=== PATIENT | female | born 1960 | race Two or more races ===

== ENCOUNTER 2017-03-09 05:51 | Emergency (ER) | payer BC, OTHER ==
[2017-03-09 06:25] VITALS: BMI 26.6
[2017-03-09 06:56] LABS: URINE APPEARANCE SLCLOUDY; URINE BILIRUBIN NEGATIVE (NEGATIVE); URINE BLOOD 3+ (NEGATIVE); URINE COLOR YELLOW; URINE GLUCOSE (UA) NEGATIVE (NEGATIVE); URINE KETONE NEGATIVE (NEGATIVE); URINE NITRITE NEGATIVE (NEGATIVE); URINE UROBILINOGEN NEGATIVE mg/dL (0.2-1.0)
[2017-03-09 07:01] LABS: URINE PROTEIN 1+ (NEGATIVE)
[2017-03-09 07:02] LABS: URINE MUCUS FEW; URINE RBC 217; URINE WBC 10
[2017-03-09] MEDS ORDERED: KETOROLAC TROMETHAMINE 15 MG/ML VIAL IVPUSH ONE (07:25)
[2017-03-09] MEDS ORDERED: KETOROLAC TROMETHAMINE 15 MG/ML VIAL ONE (07:29)
[2017-03-09] MEDS ORDERED: SODIUM CHLORIDE 1,000 ML IV STA (07:36)
--- NOTE | 2017-03-09 07:49 | PDOC ---
History of Present Illness - General Chief Complaint: Pain, Acute Stated Complaint: PAIN/KIDNEY STONE Time Seen by Provider: 03/09/17 07:23 - History of Present Illness Initial Comments: 03/09/17 07:46 56F with no pmh presents with left flank pain radiating to groin and lower back with burning on urination since 3 am. She also had an episode of vomiting this morning outside the ER. She had kidney stones in the past 5 years ago. 03/09/17 08:05 Past History - Past Medical History Allergies/Adverse Reactions: Allergies Allergy/AdvReac Type Severity Reaction Status Date / Time No Known Allergies Allergy Verified 03/09/17 06:20 Home Medications: Ambulatory Orders Diazepam [Valium] 5 mg PO BID PRN #10 tablet 10/12/12 Naproxen [Naprosyn] 500 mg PO BID PRN #14 tablet 10/12/12 No Home Medications 0 dose .ROUTE UTDICT 10/12/12 - Reproductive History Cervical CA: No Dysfunctional Uterine Bleeding: No Ectopic : No Endometrial CA: No Polycystic Ovaries: No - Suicide/Smoking/Psychosocial Hx Smoking Status: No Smoking History: Never smoked Have you smoked in the past 12 months: No Number of Cigarettes Smoked Daily: 0 Information on smoking cessation initiated: No Hx Alcohol Use: No Drug/Substance Use Hx: No Review of Systems - Review of Systems Able to Perform ROS?: Yes Constitutional: No: Chills, Fever, Weakness HEENTM: No: Symptoms Reported Respiratory: No: Symptoms reported Cardiac (ROS): No: Symptoms Reported ABD/GI: No: Symptoms Reported : Yes: Burning, Dysuria, Urgency. No: Hematuria Musculoskeletal: No: Symptoms Reported Integumentary: No: Symptoms Reported Neurological: No: Symptoms reported Endocrine: No: Symptoms Reported All Other Systems: Reviewed and Negative *Physical Exam - Vital Signs Last Vital Signs Temp Pulse Resp BP Pulse Ox 97.7 F 64 14 108/71 100 03/09/17 06:21 03/09/17 06:21 03/09/17 06:21 03/09/17 06:21 03/09/17 06:21 - Physical Exam General Appearance: Yes: Nourished, Appropriately Dressed. No: Apparent Distress HEENT: positive: EOMI, MELISSA, Normal ENT Inspection Neck: positive: Trachea midline. negative: Tender Respiratory/Chest: positive: Lungs Clear, Normal Breath Sounds. negative: Chest Tender Cardiovascular: positive: Regular Rhythm, Regular Rate, S1, S2 Gastrointestinal/Abdominal: positive: Normal Bowel Sounds, Flat, Soft, Protuberent Musculoskeletal: positive: CVA Tenderness (L) Neurologic: positive: Fully Oriented, Alert, Normal Mood/Affect ED Treatment Course - LABORATORY CBC & Chemistry Diagram: 03/09/17 07:42 03/09/17 07:42 - ADDITIONAL ORDERS Additional order review: Laboratory Results 03/09/17 05:35 Urine Color Yellow Urine Appearance Slcloudy Urine pH 5.0 Ur Specific [place] 1.025 Urine Protein 1+ H Urine Glucose (UA) Negative Urine Ketones Negative Urine Blood 3+ H Urine Nitrite Negative Urine Bilirubin Negative Urine Urobilinogen Negative Urine WBC (Auto) 10 Urine RBC (Auto) 217 Ur Epithelial Cells Rare Urine Mucus Few Medical Decision Making - Medical Decision Making 03/09/17 08:25 56F with pmh of kidney stones presents with left sided flank pain since 3am. Patient given ketorolac for pain and iv hydration.. *DC/Admit/Observation/Transfer Diagnosis at time of Disposition: Nephrolithiasis - Discharge Dispostion Disposition: HOME Admit: No - Referrals Referrals: Kelin Martínez [Primary Care Provider] - Dilan Gomez MD [Staff Physician] - - Patient Instructions Printed Discharge Instructions: DI for Kidney Stones Additional Instructions: Follow up with Urologist Dr. Gomez, call to set up appointment. Come back to the Ed for any new, worsening or concerning symptom like difficulty urinating, blood in urine, fever, nausea, vomiting. - Post Discharge Activity
[2017-03-09 07:50] LABS: BASOPHIL 0.6 % (0-2.0); EOSINOPHIL 5.6 % (0-4.5); MCH 30.9 pg (25.7-33.7); MCHC 33.2 g/dl (32.0-36.0); MEAN PLT VOLUME 8.4 fl (7.5-11.1); NEUTROPHILS 58.6 % (42.8-82.8); PLATELET COUNT 195 K/MM3 (134-434); RDW 12.8 % (11.6-15.6); WHITE BLOOD COUNT 5.2 K/mm3 (4.0-10.0)
[2017-03-09 08:18] LABS: ALBUMIN 3.4 g/dl (3.4-5.0); ANION GAP 6 (8-16); BILIRUBIN,TOTAL 0.4 mg/dL (0.2-1.0); CO2 27 mmol/L (21-32); CREATININE 0.7 mg/dL (0.55-1.02); GLUCOSE,RANDOM 93 mg/dL (74-106); SGOT/AST 12 U/L (15-37); SGPT/ALT 22 U/L (12-78); TOT PROT 6.4 g/dl (6.4-8.2)
[2017-03-09 08:19] LABS: ALK PHOS 94 U/L (45-117)
--- NOTE | 2017-03-09 09:03 | PDOC ---
Attending Attestation - Resident Resident Name: Marcio Lester - ED Attending Attestation I have performed the following: I have examined & evaluated the patient, The case was reviewed & discussed with the resident, I agree w/resident's findings & plan, Exceptions are as noted - HPI HPI: 03/09/17 09:01 56-year-old female with history of nephrolithiasis presents with acute onset of left flank pain that awoke her from sleep around 3 AM, associated urinary urgency and vomiting with peaks of pain. No fevers or chills, no preceding urinary frequency or dysuria, feels the same as her past kidney stone. The pain is now beginning to radiate anteriorly to the groin. Never needed stents or stone retrieval, last episode was in this institution 5 years ago - Physicial Exam PE: 03/09/17 09:02 Vital signs normal. More comfortable after pain medicine Abdomen is soft/nondistended/nontender. Positive left CVA tenderness - Medical Decision Making 03/09/17 09:02 Patient seen and evaluated with the resident. I agree with the overall evaluation, assessment, and management with the following summary of visit: 56-year-old female with history of nephrolithiasis presents with her renal colic symptoms on the left side, onset about 5 hours ago and without associated symptoms of infection. Improved after pain control, well-appearing now. Labs, urinalysis show no leukocytosis, normal creatinine, and urinalysis with elevated blood but negative nitrites and only 10 white blood cells. We'll check renal ultrasound Reassess and dispo with urology follow-up
[2017-03-09 11:44] VITALS: BP 110/82; PULSE 75; TEMP 98
[2017-03-09 16:46] LABS: URINE LEUK ESTERASE Negative (NEGATIVE)
== END 2017-03-09 11:44 | disposition home or self-care (01) ==
LOC: JER 05:51
PROC: 3E0337Z Introduction of Electrolytic and Water Balance Substance into Peripheral Vein, Percutaneous Approach (ICD-10-PCS; principal; 2017-03-09)
PROC: 3E0333Z Introduction of Anti-inflammatory into Peripheral Vein, Percutaneous Approach (ICD-10-PCS; 2017-03-09)
DX: N20.0 Calculus of kidney (principal); Z87.442 Personal history of urinary calculi
CPT/HCPCS: 36415; 76775-TC; 80053; 81003; 81015; 85025; 99283-25

== ENCOUNTER 2017-03-11 08:37 | Emergency (ER) | payer BC ==
[2017-03-11 09:00] VITALS: BMI 26.6
[2017-03-11] MEDS ORDERED: morphine SULFATE 4 MG/ML VIAL IVPUSH ONE (09:35)
[2017-03-11] MEDS ORDERED: KETOROLAC TROMETHAMINE 30 MG/1 ML VIAL IVPUSH ONE (09:35)
[2017-03-11] MEDS ORDERED: SODIUM CHLORIDE 0.9% 1000 ML INFUS.BAG IV ONE (09:35)
[2017-03-11] MEDS ORDERED: ONDANSETRON 4 MG/2 ML VIAL IVPUSH ONE (09:35)
[2017-03-11] MEDS ORDERED: morphine SULFATE 4 MG/ML VIAL ONE (09:52)
[2017-03-11] MEDS ORDERED: KETOROLAC TROMETHAMINE 30 MG/1 ML VIAL ONE (09:52)
[2017-03-11 10:06] LABS: BASOPHIL 0.3 % (0-2.0); EOSINOPHIL 3.2 % (0-4.5); MCHC 33.4 g/dl (32.0-36.0); MEAN CELL VOLUME 92.9 fl (80-96); MEAN PLT VOLUME 8.4 fl (7.5-11.1); NEUTROPHILS 72.1 % (42.8-82.8); PLATELET COUNT 193 K/MM3 (134-434); RDW 12.9 % (11.6-15.6); WHITE BLOOD COUNT 9.8 K/mm3 (4.0-10.0)
[2017-03-11 10:10] LABS: URINE APPEARANCE CLEAR; URINE BILIRUBIN NEGATIVE (NEGATIVE); URINE BLOOD NEGATIVE (NEGATIVE); URINE COLOR COLORLESS; URINE GLUCOSE (UA) NEGATIVE (NEGATIVE); URINE KETONE NEGATIVE (NEGATIVE); URINE NITRITE NEGATIVE (NEGATIVE); URINE PROTEIN NEGATIVE (NEGATIVE); URINE UROBILINOGEN NEGATIVE mg/dL (0.2-1.0)
--- NOTE | 2017-03-11 10:19 | PDOC ---
History of Present Illness - General History Source: Patient Exam Limitations: No Limitations - History of Present Illness Initial Comments: 03/11/17 10:20 The patient is a 56 year old female, with a significant past medical history of nephrolithiasis, who presents to the emergency department with abdominal that radiates into her flank. She notes since the onset of her pain having some nausea. The patient reports on Wednesday after US being diagnosed with kidney stones. She denies any CT scan while in the ER on wednesday. She denies recent fevers, chills, headache or dizziness. She denies recent vomit, diarrhea or constipation. She denies recent dysuria, frequency, urgency or hematuria. She denies recent chest pain or shortness of breath. Allergies: NKA Past surgical history: None reported. Social history: Nonsmoker. Denies EtOH use and recreational drug use. <Levon Willingham - Last Filed: 03/11/17 10:20> <Aurora Ding - Last Filed: 03/11/17 13:36> - General Chief Complaint: Pain, Acute Stated Complaint: FLANK PAIN/HX OF KIDNEY STONES Time Seen by Provider: 03/11/17 09:31 Past History <Levon Willingham - Last Filed: 03/11/17 10:20> - Past Medical History COPD: No Kidney Stones: Yes - Reproductive History Cervical CA: No Dysfunctional Uterine Bleeding: No Ectopic : No Endometrial CA: No Polycystic Ovaries: No - Suicide/Smoking/Psychosocial Hx Smoking Status: No Smoking History: Never smoked Have you smoked in the past 12 months: No Number of Cigarettes Smoked Daily: 0 Hx Alcohol Use: No Drug/Substance Use Hx: No Substance Use Type: None <Aurora Ding - Last Filed: 03/11/17 13:36> - Past Medical History Allergies/Adverse Reactions: Allergies Allergy/AdvReac Type Severity Reaction Status Date / Time No Known Allergies Allergy Verified 03/11/17 08:57 Home Medications: Ambulatory Orders Diazepam [Valium] 5 mg PO BID PRN #10 tablet 10/12/12 Naproxen [Naprosyn] 500 mg PO BID PRN #14 tablet 10/12/12 No Home Medications 0 dose .ROUTE UTDICT 10/12/12 Ibuprofen [Motrin -] 600 mg PO TID #90 tablet 03/11/17 Review of Systems - Review of Systems Able to Perform ROS?: Yes Comments:: 03/11/17 10:20 GENERAL/CONSTITUTIONAL: No fever or chills. No weakness. HEAD, EYES, EARS, NOSE AND THROAT: No change in vision. No ear pain or discharge. No sore throat. CARDIOVASCULAR: No chest pain or shortness of breath. RESPIRATORY: No cough, wheezing, or hemoptysis. GASTROINTESTINAL: +nausea, LLQ pain, flank pain. No vomiting, diarrhea or constipation. GENITOURINARY: No dysuria, frequency, or change in urination. MUSCULOSKELETAL: No joint or muscle swelling or pain. No neck or back pain. SKIN: No rash NEUROLOGIC: No headache, vertigo, loss of consciousness, or change in strength/ sensation. ENDOCRINE: No increased thirst. No abnormal weight change. HEMATOLOGIC/LYMPHATIC: No anemia, easy bleeding, or history of blood clots. ALLERGIC/IMMUNOLOGIC: No hives or skin allergy. <Levon Willingham - Last Filed: 03/11/17 10:20> *Physical Exam - Vital Signs Last Vital Signs Temp Pulse Resp BP Pulse Ox 98.7 F 72 19 124/72 98 03/11/17 08:57 03/11/17 08:57 03/11/17 08:57 03/11/17 08:57 03/11/17 08:57 - Physical Exam Comments: 03/11/17 10:20 GENERAL: Awake, alert, and fully oriented, in no acute distress HEAD: No signs of trauma EYES: PERRLA, EOMI, sclera anicteric, conjunctiva clear ENT: Auricles normal inspection, hearing grossly normal, nares patent, Moist mucosa NECK: Normal ROM, supple, JVD, or masses LUNGS: Breath sounds equal, clear to auscultation bilaterally. No wheezes, and no crackles HEART: Regular rate and rhythm, normal S1 and S2, no murmurs, rubs or gallops ABDOMEN: Soft, LEFT CVA and LLQ tenderness., normoactive bowel sounds. No guarding, no rebound. No masses EXTREMITIES: Normal range of motion, no edema. No clubbing or cyanosis. No cords, erythema, or tenderness. 2+DP/PT pulses. NEUROLOGICAL: Normal speech, normal gait, moves all extremities equally. Speech clear. SKIN: Warm, Dry, normal turgor, no rashes or lesions noted. <Levon Willingham - Last Filed: 03/11/17 10:20> - Vital Signs Last Vital Signs Temp Pulse Resp BP Pulse Ox 98.7 F 72 19 124/72 98 03/11/17 08:57 03/11/17 08:57 03/11/17 08:57 03/11/17 08:57 03/11/17 08:57 <Aurora Ding - Last Filed: 03/11/17 13:36> ED Treatment Course - LABORATORY CBC & Chemistry Diagram: 03/11/17 09:50 03/11/17 09:50 - ADDITIONAL ORDERS Additional order review: Laboratory Results 03/11/17 09:50 Urine Color Colorless Urine Appearance Clear Urine pH 5.0 Ur Specific [place] 1.003 Urine Protein Negative Urine Glucose (UA) Negative Urine Ketones Negative Urine Blood Negative Urine Nitrite Negative Urine Bilirubin Negative Urine Urobilinogen Negative 03/11/17 09:50 RBC 4.36 MCV 92.9 MCHC 33.4 RDW 12.9 MPV 8.4 Neutrophils % 72.1 D Lymphocytes % 15.4 D Monocytes % 9.0 Eosinophils % 3.2 Basophils % 0.3 - Medications Given in the ED: ED Medications Discontinued Medications Generic Name Dose Route Start Last Admin Trade Name Kari PRN Reason Stop Dose Admin Ketorolac Tromethamine 30 mg 03/11/17 09:35 03/11/17 10:02 Toradol Injection - IVPUSH 03/11/17 09:36 30 mg ONCE ONE Administration Morphine Sulfate 4 mg 03/11/17 09:35 03/11/17 10:02 Morphine Sulfate IVPUSH 03/11/17 09:36 4 mg ONCE ONE Administration Ondansetron HCl 4 mg 03/11/17 09:35 03/11/17 10:03 Zofran Injection IVPUSH 03/11/17 09:36 4 mg ONCE ONE Administration Sodium Chloride 1,000 ml 03/11/17 09:35 03/11/17 10:02 Normal Saline - IV 03/11/17 09:36 1,000 ml ONCE ONE Administration <Levon Willingham - Last Filed: 03/11/17 10:20> - LABORATORY CBC & Chemistry Diagram: 03/11/17 09:50 03/11/17 09:50 - ADDITIONAL ORDERS Additional order review: Laboratory Results 03/11/17 09:50 Urine Color Colorless Urine Appearance Clear Urine pH 5.0 Ur Specific [place] 1.003 Urine Protein Negative Urine Glucose (UA) Negative Urine Ketones Negative Urine Blood Negative Urine Nitrite Negative Urine Bilirubin Negative Urine Urobilinogen Negative 03/11/17 09:50 RBC 4.36 MCV 92.9 MCHC 33.4 RDW 12.9 MPV 8.4 Neutrophils % 72.1 D Lymphocytes % 15.4 D Monocytes % 9.0 Eosinophils % 3.2 Basophils % 0.3 - RADIOLOGY Radiology Studies Ordered: Category Date Time Status SPIRAL- RENAL-STONE CT [CT] Stat CT Scan 03/11/17 09:36 Ordered - Medications Given in the ED: ED Medications Discontinued Medications Generic Name Dose Route Start Last Admin Trade Name Carrollq PRN Reason Stop Dose Admin Ketorolac Tromethamine 30 mg 03/11/17 09:35 03/11/17 10:02 Toradol Injection - IVPUSH 03/11/17 09:36 30 mg ONCE ONE Administration Morphine Sulfate 4 mg 03/11/17 09:35 03/11/17 10:02 Morphine Sulfate IVPUSH 03/11/17 09:36 4 mg ONCE ONE Administration Ondansetron HCl 4 mg 03/11/17 09:35 03/11/17 10:03 Zofran Injection IVPUSH 03/11/17 09:36 4 mg ONCE ONE Administration Sodium Chloride 1,000 ml 03/11/17 09:35 03/11/17 10:02 Normal Saline - IV 03/11/17 09:36 1,000 ml ONCE ONE Administration <Aurora Ding - Last Filed: 03/11/17 13:36> Medical Decision Making - Medical Decision Making 03/11/17 10:17 56-year-old female with a history of prior renal colic 5 years ago, here today complaining of left-sided flank pain radiating to her lower abdomen. Patient states she was seen in the ED 3 days ago for similar pain was evaluated with a renal ultrasound and told she likely had a renal stone. Since then pain is gotten worse severe and persistent. Also having associated nausea, no vomiting. No fevers chills or urinary complaints. Pain is now constant no moderating factors. No relief with Tylenol every 4 hours. Has never seen a urologist On exam patient is awake alert in no distress. Lungs are clear,, cardiac exam is normal. Abdomen is noted for left lower quadrant tenderness to palpation, no rebound, no guarding. Also left sided CVA tenderness. External ears are warm and well perfused no edema. Differential UTI, persistent renal colic, will obtain CT spiral. CBC CMP to evaluate patient's renal function. UA. Pain control and antiemetics patient will likely require outpatient urology follow-up. 03/11/17 13:31 CT results show a 5 mm left UVJ stone. With mild hydronephrosis. Patient states she is feeling much better. We'll discharge home with a prescription for Motrin 6 mg and follow-up with urology. Patient currently has appointment for later this month <Aurora Ding - Last Filed: 03/11/17 13:36> *DC/Admit/Observation/Transfer - Attestations Scribe Attestion: 03/11/17 10:20 Documentation prepared by Levon Willingham, acting as medical technician assistant for Aurora Ding MD. <Levon Willingham - Last Filed: 03/11/17 10:20> - Discharge Dispostion Admit: No <Aurora Ding - Last Filed: 03/11/17 13:36> Diagnosis at time of Disposition: Renal colic - Discharge Dispostion Disposition: HOME Condition at time of disposition: Improved - Prescriptions Prescriptions: Ibuprofen [Motrin -] 600 mg PO TID #90 tablet - Referrals Referrals: Kelin Martínez [Primary Care Provider] - - Patient Instructions Printed Discharge Instructions: Kidney Stones -- Adult Additional Instructions: You should follow-up with your primary doctor. Take Motrin 600 mg every 6-8 hours as needed for pain. Take with food. Return for any pain not relieved with Motrin, fevers, vomiting, failure to urinate over 6 hours, or any concerns. Drink plenty of liquids - Post Discharge Activity
[2017-03-11 10:27] LABS: ALBUMIN 3.4 g/dl (3.4-5.0); ANION GAP 7 (8-16); BILIRUBIN,TOTAL 0.4 mg/dL (0.2-1.0); CALCIUM 8.1 mg/dL (8.5-10.1); CO2 27 mmol/L (21-32); GLUCOSE,RANDOM 81 mg/dL (74-106); SGOT/AST 17 U/L (15-37); SGPT/ALT 25 U/L (12-78); TOT PROT 6.6 g/dl (6.4-8.2)
[2017-03-11 10:28] LABS: ALK PHOS 97 U/L (45-117)
[2017-03-11 14:09] VITALS: BP 118/79; PULSE 65; TEMP 98
[2017-03-11 16:41] LABS: URINE LEUK ESTERASE Negative (NEGATIVE)
== END 2017-03-11 14:09 | disposition home or self-care (01) ==
LOC: JER 08:37
PROC: 3E033GC Introduction of Other Therapeutic Substance into Peripheral Vein, Percutaneous Approach (ICD-10-PCS; principal; 2017-03-11)
PROC: 3E033NZ Introduction of Analgesics, Hypnotics, Sedatives into Peripheral Vein, Percutaneous Approach (ICD-10-PCS; 2017-03-11)
PROC: 3E0333Z Introduction of Anti-inflammatory into Peripheral Vein, Percutaneous Approach (ICD-10-PCS; 2017-03-11)
DX: N20.0 Calculus of kidney (principal); Z87.442 Personal history of urinary calculi
CPT/HCPCS: 36415; 74176; 80053; 81003; 85025; 99282-25

== ENCOUNTER 2018-10-13 10:26 | Emergency (ER) | payer BC ==
[2018-10-13 10:46] VITALS: BP 105/85; PULSE 66; BMI 28.3
--- NOTE | 2018-10-13 11:13 | PDOC ---
History of Present Illness - General Chief Complaint: Pain Stated Complaint: LT SIDE PAIN Time Seen by Provider: 10/13/18 11:12 Past History - Past Medical History Allergies/Adverse Reactions: Allergies Allergy/AdvReac Type Severity Reaction Status Date / Time No Known Allergies Allergy Verified 10/13/18 10:43 Home Medications: Ambulatory Orders Diazepam [Valium] 5 mg PO BID PRN #10 tablet 10/12/12 Naproxen [Naprosyn] 500 mg PO BID PRN #14 tablet 10/12/12 No Home Medications 0 dose .ROUTE UTDICT 10/12/12 Ibuprofen [Motrin -] 600 mg PO TID #90 tablet 03/11/17 COPD: No Kidney Stones: Yes - Reproductive History Cervical CA: No Dysfunctional Uterine Bleeding: No Ectopic : No Endometrial CA: No Polycystic Ovaries: No - Suicide/Smoking/Psychosocial Hx Smoking Status: No Smoking History: Never smoked Have you smoked in the past 12 months: No Number of Cigarettes Smoked Daily: 0 Information on smoking cessation initiated: No Hx Alcohol Use: No Drug/Substance Use Hx: No Substance Use Type: None *Physical Exam - Vital Signs Last Vital Signs Temp Pulse Resp BP Pulse Ox 66 16 105/85 96 10/13/18 10:30 10/13/18 10:30 10/13/18 10:30 10/13/18 10:30 *DC/Admit/Observation/Transfer - Referrals Referrals: Kelin Martínez [Primary Care Provider] - - Patient Instructions - Post Discharge Activity
[2018-10-13] MEDS ORDERED: ACETAMINOPHEN 1000 MG/100 ML VIAL (NON FORMULARY) IVPB ONE (11:35)
[2018-10-13] MEDS ORDERED: METOCLOPRAMIDE HCL INJECTION 10 MG/2 ML VIAL IVPUSH ONE (11:35)
--- NOTE | 2018-10-13 11:40 | PDOC ---
History of Present Illness - General Chief Complaint: Pain Stated Complaint: LT SIDE PAIN Time Seen by Provider: 10/13/18 11:12 - History of Present Illness Initial Comments: 10/13/18 11:37 Ms. Emmanuel is a 58 yo female w/ no pmh who presents for evaluation of headache with slurred speech and L sided weakness. Patient reports headache started last night at 1600 and she felt a pounding in her L caodaism. Patient reports she took tylenol and went to bed. Woke up this morning with continued pain and took another tylenol at 0300. Patient went to work per normal where colleague noted her to have mildly slurred speech, prompting her visit. Patient is also reporting L sided neck pain and L leg weakness at this time. The patient denies chest pain, shortness of breath, and dizziness. Denies fever , chills, nausea, vomit, diarrhea and constipation. Denies dysuria, frequency, urgency and hematuria. Past History - Past Medical History Allergies/Adverse Reactions: Allergies Allergy/AdvReac Type Severity Reaction Status Date / Time No Known Allergies Allergy Verified 10/13/18 10:43 Home Medications: Ambulatory Orders Acetaminophen/Caffeine/Butalb [Fioricet -] 1 tab PO Q6H PRN #5 tablet MDD 4 Acetaminophen/Caffeine/Butalb [Fioricet -] 1 tablet PO BID PRN #6 tablet MDD 2 10/13/18 COPD: No Kidney Stones: Yes - Reproductive History Cervical CA: No Dysfunctional Uterine Bleeding: No Ectopic : No Endometrial CA: No Polycystic Ovaries: No - Suicide/Smoking/Psychosocial Hx Smoking Status: No Smoking History: Never smoked Have you smoked in the past 12 months: No Number of Cigarettes Smoked Daily: 0 Information on smoking cessation initiated: No Hx Alcohol Use: No Drug/Substance Use Hx: No Substance Use Type: None Review of Systems - Review of Systems Comments:: 10/13/18 11:40 GENERAL/CONSTITUTIONAL: No fever or chills. No weakness. HEAD, EYES, EARS, NOSE AND THROAT: +L neck pain. No change in vision. No ear pain or discharge. No sore throat. CARDIOVASCULAR: No chest pain or shortness of breath RESPIRATORY: No cough, wheezing, or hemoptysis. GASTROINTESTINAL: No nausea, vomiting, diarrhea or constipation. GENITOURINARY: No dysuria, frequency, or change in urination. MUSCULOSKELETAL: +L leg weakness as described. No joint or muscle swelling or pain. No back pain. SKIN: No rash NEUROLOGIC: +L sided headache as described. Mildly slurred speech. No vertigo, loss of consciousness, or change in strength/sensation. ENDOCRINE: No increased thirst. No abnormal weight change HEMATOLOGIC/LYMPHATIC: No anemia, easy bleeding, or history of blood clots. ALLERGIC/IMMUNOLOGIC: No hives or skin allergy. *Physical Exam - Vital Signs Last Vital Signs Temp Pulse Resp BP Pulse Ox 66 16 105/85 96 10/13/18 10:30 10/13/18 10:30 10/13/18 10:30 10/13/18 10:30 - Physical Exam Comments: 10/13/18 11:41 GENERAL: Awake, alert, and fully oriented, in no acute distress HEAD: No signs of trauma, normocephalic, atraumatic EYES: PERRLA, EOMI, sclera anicteric, conjunctiva clear ENT: Auricles normal inspection, hearing grossly normal, nares patent, oropharynx clear without exudates. Moist mucosa NECK: Normal ROM, supple, no lymphadenopathy, JVD, or masses LUNGS: No distress, speaks full sentences, clear to auscultation bilaterally HEART: Regular rate and rhythm, normal S1 and S2, no murmurs, rubs or gallops, peripheral pulses normal and equal bilaterally. ABDOMEN: Soft, nontender, normoactive bowel sounds. No guarding, no rebound. No masses EXTREMITIES: Normal inspection, Normal range of motion, no edema. No clubbing or cyanosis. NEUROLOGICAL: +Speech mildly slurred with minor L leg weakness. Cranial nerves II through XII grossly intact. No focal sensorimotor deficits SKIN: Warm, Dry, normal turgor, no rashes or lesions noted. NIH Stroke Scale - Last Known Well Date/Time & Onset Date Last Known Well: 10/12/18 Time Last Known Well: 16:00 - Initial Evaluation Level of consciousness: Alert Ask patient the month and their age: Answers both correctly Ask patient to open & close eyes; make fist and let go: Obeys both correctly Best gaze (horizontal eye movement): Normal Visual field testing: No visual field loss Facial paresis (Show teeth/raise eyebrows/close eyes tight): Normal symmetrical movement Motor Function: Left Arm: Normal Motor Function: Right Arm: Normal (extends arm 90 (or 45) degrees for 10 seconds without drift Motor Function: Left Leg: Drift Motor Function: Right Leg: Normal (extends leg 30 degrees for 5 seconds without drift) Limb Ataxia: No ataxia Sensory(Use pinprick test arms,legs,trunk,face/side to side): Normal Best language (Describe picture, name items, read sentences): No Aphasia Dysarthria (read several words): Mild to moderate slurring of words Extinction and Inattention: No abnormality - Total Score NIH Stroke Scale Score: 2 tPA Exclusion checklist 3-4.5h - Time Elapsed Date last known well: 10/12/18 Time last known well: 16:00 Elaspsed time: Day(s) and 23 Hour(s) and 32 Minutes - Thrombolytic Therapy Candidate Is patient eligible for thrombolytic therapy: No - Exclusion Criteria 3-4.5 hr SBP greater than 185 or DBP greater than 110mmHg despite tx: No Recent IC/spinal surgery,head trauma or stroke<3mos.: No Hx IC hemorrhage, IC neoplasm, AV malformation or aneurysm: No Active internal bleeding: No Blding diathesis(low plt ct, inc PTT,INR>1.7 or use of NOAC): No Symptoms suggest subarachnoid hemorrhage: No CT demonstrates multilobar infarct(>1/3 cerebral hemiphere): No Arterial puncture at noncompressible site in previous 7 days: No Blood glucose concentration less than 50mg/dL (2.7mmol/L): No - Relative Exclusion Criteria 3-4.5 hr Life expectancy <1 yr or severe co-morbid illness: No : No Patient/family refused: No Rapid improvement: No Stroke severity too mild: Yes Recent acute NH (w/in previous 3 months): No Seizure at onset with postictal residual neuro impairments: No Major surgery or serious trauma w/in previous 14 days: No Recent GI or hemorrhage (w/in previous 21 days): No - Add'l Relative Exclusion 3-4.5 hr Age > 80: No Hx of both diabetes AND prior ischemic stroke: No Taking an oral anticoagulant regardless of INR: No NIHSS >25: No - Ineligibility reason(s) Reasons No tPA given: Outside of window - delayed arrival, See reason(s) noted above Critical Care Time/MDM Note - Medical Decision Making Note: 10/13/18 14:54 Ms. Emmanuel is a 58 yo female w/ pmh as described who presents for evaluation of L sided weakness and speech alterations concerning for complicated migraine vs. dissection vs. stroke. Patient evaluated with head CT and head/neck CTA as well as stroke labs. Patient cholesterol noted to be high however no other concerning findings noted. CT/CTAs negative. Patient symptoms improved following reglan/tylenol. Suspect complicated migraine. Patient will be discharged for further outpatient neurology follow-up. Laboratory Results - last 24 hr 10/13/18 10/13/18 10/13/18 11:40 11:40 11:40 WBC 5.2 RBC 4.53 Hgb 14.3 Hct 42.7 MCV 94.3 MCH 31.5 MCHC 33.4 RDW 12.7 Plt Count 229 MPV 8.5 Absolute Neuts (auto) 2.6 Neutrophils % 49.4 D Lymphocytes % 35.1 D Monocytes % 8.0 Eosinophils % 6.2 H D Basophils % 1.3 D Nucleated RBC % 0 PT with INR 11.30 INR 0.96 Sodium Potassium Chloride Carbon Dioxide Anion Gap BUN Creatinine Est GFR (CKD-EPI)AfAm Est GFR (CKD-EPI)NonAf Random Glucose Calcium Total Bilirubin AST ALT Alkaline Phosphatase Creatine Kinase Troponin I Total Protein Albumin Triglycerides Cholesterol Total LDL Cholesterol HDL Cholesterol Urine Color Yellow Urine Appearance Clear Urine pH 5.5 Ur Specific [place] 1.015 Urine Protein Negative Urine Glucose (UA) Negative Urine Ketones Negative Urine Blood Negative Urine Nitrite Negative Urine Bilirubin Negative Urine Urobilinogen 0.2 Ur Leukocyte Esterase Trace Urine WBC (Auto) 2 Urine RBC (Auto) 1 Urine Casts (Auto) 1 U Epithel Cells (Auto) 2.4 Urine Bacteria (Auto) 19.5 Blood Type Antibody Screen 10/13/18 10/13/18 11:40 11:40 WBC RBC Hgb Hct MCV MCH MCHC RDW Plt Count MPV Absolute Neuts (auto) Neutrophils % Lymphocytes % Monocytes % Eosinophils % Basophils % Nucleated RBC % PT with INR INR Sodium 140 Potassium 4.3 Chloride 108 H Carbon Dioxide 26 Anion Gap 7 L BUN 10.0 Creatinine 0.7 Est GFR (CKD-EPI)AfAm 111.47 Est GFR (CKD-EPI)NonAf 96.18 Random Glucose 84 Calcium 8.7 Total Bilirubin 0.4 AST 16 ALT 26 Alkaline Phosphatase 99 Creatine Kinase 80 Troponin I < 0.02 Total Protein 6.8 Albumin 3.6 Triglycerides 238 H Cholesterol 256 H Total LDL Cholesterol 179 H HDL Cholesterol 39 L Urine Color Urine Appearance Urine pH Ur Specific [place] Urine Protein Urine Glucose (UA) Urine Ketones Urine Blood Urine Nitrite Urine Bilirubin Urine Urobilinogen Ur Leukocyte Esterase Urine WBC (Auto) Urine RBC (Auto) Urine Casts (Auto) U Epithel Cells (Auto) Urine Bacteria (Auto) Blood Type O POSITIVE Antibody Screen Negative *DC/Admit/Observation/Transfer Diagnosis at time of Disposition: Complicated migraine - Discharge Dispostion Disposition: HOME - Prescriptions Prescriptions: Acetaminophen/Caffeine/Butalb [Fioricet -] 1 tab PO Q6H PRN #5 tablet MDD 4 PRN Reason: Headache Acetaminophen/Caffeine/Butalb [Fioricet -] 1 tablet PO BID PRN #6 tablet MDD 2 PRN Reason: severe headache - Referrals Referrals: Kelin Martínez [Primary Care Provider] - Ba Mcgraw MD [Staff Physician] - - Patient Instructions Printed Discharge Instructions: DI for Migraine Additional Instructions: You were evaluated today in the ER for your symptoms and found to have a complicated migraine. We evaluated you with Head CT and Head/Neck CTA without any concerning findings and symptoms resolved following tylenol and reglan. Please follow-up using Neurology information provided for further outpatient evaluation early next week. You may take over the counter Excedrin for further headache. We have also sent a prescription to your pharmacy which you may use if Excedrin does not cover your pain. Return to ER IMMEDIATELY if any new onset weakness, slurred speech, worsening of headache, or other concerning symptoms. - Post Discharge Activity
[2018-10-13] MEDS ORDERED: SODIUM CHLORIDE 1,000 ML IV SCH (11:45)
[2018-10-13 11:57] LABS: BASO % 1.3 % (0-2.0); EOS % 6.2 % (0-4.5); HEMATOCRIT 42.7 % (32.4-45.2); HEMOGLOBIN 14.3 GM/dL (10.7-15.3); LYMPH % 35.1 % (8-40); MCH 31.5 pg (25.7-33.7); MCHC 33.4 g/dl (32.0-36.0); MEAN CELL VOLUME 94.3 fl (80-96); MEAN PLT VOLUME 8.5 fl (7.5-11.1); NEUT % 49.4 % (42.8-82.8); PLATELET COUNT 229 K/MM3 (134-434); RBC 4.53 M/mm3 (3.60-5.2); RDW 12.7 % (11.6-15.6); WHITE BLOOD COUNT 5.2 K/mm3 (4.0-10.0)
[2018-10-13 12:09] LABS: EPI CELLS 2.4 /HPF (0-5/HPF); HYALINE CASTS 1 /lpf (0-8); PH,URINE 5.5 (5.0-8.0); URINE APPEARANCE CLEAR; URINE BACTERIA 19.5 /hpf (NEGATIVE); URINE BILIRUBIN NEGATIVE (NEGATIVE); URINE COLOR YELLOW; URINE GLUCOSE (UA) NEGATIVE (NEGATIVE); URINE KETONE NEGATIVE (NEGATIVE); URINE LEUK ESTERASE TRACE (NEGATIVE); URINE NITRITE NEGATIVE (NEGATIVE); URINE PROTEIN NEGATIVE (NEGATIVE); URINE RBC 1 /hpf (0-4); URINE UROBILINOGEN 0.2 mg/dL (0.2-1.0); URINE WBC 2 /hpf (0-5)
[2018-10-13 12:19] LABS: ALBUMIN 3.6 g/dl (3.4-5.0); ALK PHOS 99 U/L (45-117); ANION GAP 7 MMOL/L (8-16); BILIRUBIN,TOTAL 0.4 mg/dL (0.2-1); CALCIUM 8.7 mg/dL (8.5-10.1); CHLORIDE 108 mmol/L (98-107); CHOLESTEROL 256 mg/dL (50-200); CO2 26 mmol/L (21-32); CREATININE 0.7 mg/dL (0.55-1.3); GLUCOSE,RANDOM 84 mg/dL (74-106); HDL CHOLESTEROL 39 mg/dL (40-60); POTASSIUM 4.3 mmol/L (3.5-5.1); SGOT/AST 16 U/L (15-37); SGPT/ALT 26 U/L (13-61); SODIUM 140 mmol/L (136-145); TOT PROT 6.8 g/dl (6.4-8.2); TRIGLYCERIDES 238 mg/dL (0-150)
[2018-10-13] MEDS ORDERED: ACETAMINOPHEN INJECTION 100 ML IVPB ONE (12:24)
[2018-10-13] MEDS ORDERED: METOCLOPRAMIDE HCL INJECTION 10 MG/2 ML VIAL ONE (12:24)
[2018-10-13 12:28] LABS: INR 0.96 (0.83-1.09); PROTHROMBIN TIME (PATIENT) 11.3 SEC (9.7-13.0)
--- NOTE | 2018-10-13 12:45 | PDOC ---
Attending Attestation - Resident Resident Name: RaymundokierrajatinJamieHaris - ED Attending Attestation I have performed the following: I have examined & evaluated the patient, The case was reviewed & discussed with the resident, I agree w/resident's findings & plan, Exceptions are as noted - HPI HPI: 10/13/18 12:39 Ms. Emmanuel is a 58 yo female w/ no pmh who presents for evaluation of headache. 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 ENT: Ears normal, nares patent, oropharynx clear without exudates. Moist mucous membranes. NECK: Normal range of motion, supple Left anterior neck tender to palpation No palpable masses Left temporal region tender to palpation No jaw claudication or pain with opening the mouth LUNGS: Breath sounds equal, clear to auscultation bilaterally. No wheezes, and no crackles. HEART:Regular rate and rhythm, normal S1 and S2 without murmur, rub or gallop. ABDOMEN: Soft, nontender, normoactive bowel sounds. EXTREMITIES: Normal range of motion, no edema. NEUROLOGICAL: Cranial nerves II through XII grossly intact. Pt speech seems normal to me. SKIN: Warm, Dry, normal turgor, no rashes or lesions noted. 10/13/18 12:45 - Medical Decision Making 10/13/18 12:45 58 yo F presenting with headache and speech changes according to family DD: complicated migraine, ICH, ICM, less likely Temporal Arteritis Will do: Labs CT Reglan/Tylenol 10/13/18 15:08 Laboratory Tests 10/13/18 10/13/18 10/13/18 11:40 11:40 11:40 WBC 5.2 Hgb 14.3 Hct 42.7 Plt Count 229 BUN 10.0 Creatinine 0.7 Triglycerides 238 H Cholesterol 256 H Total LDL Cholesterol 179 H HDL Cholesterol 39 L Urine Ketones Negative Urine Blood Negative Urine Bilirubin Negative Urine WBC (Auto) 2 Urine RBC (Auto) 1 10/13/18 15:08 EKG - this appears to be sinus rhythm for me NOT AFLUTTER, rate of 55, axis nml , intervals nml Upon Reassessment Pt states she feels better No tenderness in temporal area Will discharge with prompt Neuro follow up Pt given return precautions History consistent with Migraine headache
--- NOTE | 2018-10-14 13:49 | EKG ---
Test Reason : Blood Pressure : / mmHG Vent. Rate : 055 BPM Atrial Rate : 208 BPM P-R Int : 000 ms QRS Dur : 070 ms QT Int : 450 ms P-R-T Axes : 044 026 037 degrees QTc Int : 430 ms POOR DATA QUALITY, INTERPRETATION MAY BE ADVERSELY AFFECTED NORMAL SINUS RHYTHM ABNORMAL ECG Confirmed by TUNG POZO MD ([id number]) on 10/14/2018 1:49:20 PM Referred By: Confirmed By:TUNG POZO MD
== END 2018-10-13 15:45 | disposition home or self-care (01) ==
LOC: JER 10:26
PROC: 3E033NZ Introduction of Analgesics, Hypnotics, Sedatives into Peripheral Vein, Percutaneous Approach (ICD-10-PCS; principal; 2018-10-13)
PROC: 3E033GC Introduction of Other Therapeutic Substance into Peripheral Vein, Percutaneous Approach (ICD-10-PCS; 2018-10-13)
DX: G43.109 Migraine with aura, not intractable, without status migrainosus (principal)
CPT/HCPCS: 36415; 70450-TC; 70496-TC; 70498-TC; 80053; 81003; 82465; 82550; 83718; 83721; 84478; 84484; 85025; 85610; 86850; 86900; 86901; 93005; 93010; 99283-25; J0131; J7030